=== PATIENT | female | born 1960 | race African-American/Black ===

== ENCOUNTER 2018-09-05 20:36 | Emergency (ER) | payer OTHER ==
[~2018-09-05] VITALS: Ht 160 cm; Wt 65.8 kg
[~2018-09-05 20:36] MED LIST: CLONAZEPAM 0.50.5 M1 PO; CLONIDINE0.1 PO; LISINOPRIL40 MG PO; NEURONTIN800 MG PO; PROZAC40 MG PO; VALIUM5 MG PO
[2018-09-05 20:38] VITALS: BP 148/88
[2018-09-05] MEDS ORDERED: COZAAR 25 MG TA25 M1 PO (20:43)
[2018-09-05] MEDS ORDERED: BRINTELLIX20 MG PO (20:43)
[2018-09-05] MEDS ORDERED: HYDROCHLOROTHIA25 M2 PO (20:43)
[2018-09-05] MEDS ORDERED: LATUDA60 MG PO (20:43)
[2018-09-05] MEDS ORDERED: OXYCONTIN10 M1 PO (20:44)
[2018-09-05] MEDS ORDERED: DEPAKOTE125 MG PO (20:44)
== END 2018-09-05 22:57 | disposition left against medical advice (07) ==
LOC: ER 20:36
DX: N89.8 Other specified noninflammatory disorders of vagina (principal); I10 Essential (primary) hypertension; M47.896 Other spondylosis, lumbar region; F32.9 Major depressive disorder, single episode, unspecified; F41.9 Anxiety disorder, unspecified